=== PATIENT | female | born 1970 ===

== ENCOUNTER → 2025-05-19 | Day surgery (SDC) | payer BC | LOC: SDC 12:51 | PROVIDERS: ATTEND Internal Medicine Gastroenterology | PROC: 4A0B78Z Measurement of Gastrointestinal Motility, Via Natural or Artificial Opening (ICD-10-PCS; principal; 2025-05-19) | DX: K21.9 Gastro-esophageal reflux disease without esophagitis (principal); R13.19 Other dysphagia; K76.6 Portal hypertension; D64.9 Anemia, unspecified; Z88.2 Allergy status to sulfonamides; Z88.5 Allergy status to narcotic agent | CPT/HCPCS: 91010; 91034 ==